=== PATIENT | female | born 1975 | race Two or more races ===

== ENCOUNTER 2018-08-21 09:46 | Emergency (ER) | payer SELFPAY ==
[2018-08-21] MEDS ORDERED: ASPIRIN 81 MG CHEWABLE TAB PO ONE (10:16)
--- NOTE | 2018-08-21 12:46 | EDPHY ---
H & P Time Seen by Provider: 08/21/18 09:50 HPI/ROS: This patient reports left lower extremity complaints. She explains that she stayed up late working on a project the in a position in which her ankles were crossed underneath her body sitting upright with her knees hyperflexed and she then slumped forward and fell asleep. She awakened at around 4 in the morning and stood up but felt a pop in her foot when she did so. She had pain associated with this and since then reports pallor, paresthesias and cold sensation to her left lower extremity. She states the pain is moderate to severe in her foot and prevents placing weight on her foot to ambulate. 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 She reports left upper extremity has injection site with no local complaints at that site. She denies any IVDA in the last 72 hrs per her report. ROS: Constitutional: No fevers Neuro: She reports paresthesias to the affected foot. No headache. Pulmonary: No shortness of breath or cough Cardiovascular: No chest pain palpitations or lightheadedness. She reports leg pain that extends from the foot up the calf into the posterior thigh the left leg. GI: No complaints Integumentary: No complaints except pallor to the affected lower extremity. 7 point review of symptoms is performed and otherwise negative with exception of pertinent positives and negatives listed in HPI and ROS Smoking Status: Light smoker Physical Exam: Physical Exam Vital signs are normal. General: No acute distress HEENT: Atraumatic. Eyes: Pupils equal and react to light. Extraocular motions are intact. Lungs: No respiratory distress. Cardiac: Regular rate and rhythm with no murmur gallop or rub. No splinter hemorrhages on fingernails. Patient has a pale left leg with a weak but palpable posterior tibialis pulse in the ankle on the left compared to the right and normal dorsalis pedis. She has delayed capillary refill in this lower extremity with mild posterior calf tenderness in addition. Homans is negative. Skin: Pallor to the left lower extremity initially. Skin is cool to the touch in the left leg compared to the right. Musculoskeletal: Patient has tenderness to the left midfoot without tenderness the 5th metatarsal or ankle. Neuro: Alert and oriented x3 with no sensorimotor deficits. Initial differential diagnosis: DVT, arterial thrombosis, foot sprain, foot fracture, Raynaud's phenomenon Constitutional: Initial Vital Signs Temperature (C) 36.9 C 08/21/18 09:49 Heart Rate 107 H 08/21/18 09:49 Respiratory Rate 16 08/21/18 09:49 Blood Pressure 165/110 H 08/21/18 09:49 O2 Sat (%) 96 08/21/18 09:49 O2 Delivery Mode Room Air Allergies/Adverse Reactions: morphine Allergy (Verified 08/21/18 09:48) Home Medications: Medication Instructions Recorded [facility] 08/21/18 MDM/Departure - MDM Diagnostics: POC CBC is normal. POC basic metabolic panel is normal. Imaging Results: Lower extremity Doppler studies negative for DVT per Dr. Blankenship Three-view foot x-rays: Negative for fracture by my interpretation. Imaging: Discussed imaging studies w/ call center team leader Radiologist (dopplar study), I viewed and interpreted images myself (foot x-rays) Medications Given: Discontinued Medications Aspirin (Aspirin) 324 mg PO EDNOW ONE Stop: 08/21/18 10:17 Last Admin: 08/21/18 10:27 Dose: 324 mg ED Course/Re-evaluation: Ibuprofen Tylenol for pain with some relief After being under a blanket for 90 min or so her left lower extremity regained normal color, temperature to touch and posterior tibialis pulses felt strong. A an element of history that she did not initially offers that she had applied ice to her left lower extremity for an hour or more after the injury. There had been ice on the lower extremity for 0.5 hr or more prior to coming in but I suspect the patient has Raynaud's phenomenon. I counseled regarding this in some detail. We ruled out DVT. Ruled out foot fracture. I think that in falling asleep she had a brief neurapraxia for lower extremity, inverted her left foot with sprain to the foot then applied ice with prolonged pallor in cool appearance due to Raynaud's phenomenon. She will wear a postop shoe, take ibuprofen Tylenol follow up with Podiatry for any prolonged symptoms. I do not think this patient has infectious etiology given lack of fevers, splinter hemorrhages, cardiac murmur or other findings at this time. I counseled her to avoid IV drug use in the future. Splinting: Patient is placed in postop shoe by our tech according to my instructions. - Depart Disposition: Home, Routine, Self-Care Clinical Impression: Foot sprain Qualifiers: Encounter type: initial encounter Laterality: left Qualified Code(s): S93.602A - Unspecified sprain of left foot, initial encounter Raynaud phenomenon Qualifiers: Raynaud?s-associated gangrene presence: without gangrene Qualified Code(s): I73.00 - Raynaud's syndrome without gangrene Condition: Good Instructions: Crutch Instructions (ED), Raynaud Disease (ED), Foot Sprain (ED) Additional Instructions: Diagnoses: 1. Foot sprain 2. Raynaud's phenomena Plan: Ibuprofen Tylenol for pain Foot splint whenever your up and about Cane or crutches until it is no longer painful to bear weight. Follow-up with football scout listed below if he is not improving significantly over the next week with treatment plan. Referrals: NONE *PRIMARY CARE P,. [Primary Care Provider] - As per Instructions Tommie Gudino MD [Doctor of Podiatric Medicine] - As per Instructions
[2018-08-21 13:24] VITALS: BP 127/98
== END 2018-08-21 13:39 | disposition home or self-care (01) ==
LOC: CED 09:46
DX: S93.602A Unspecified sprain of left foot, initial encounter (principal); X50.9XXA Other and unspecified overexertion or strenuous movements or postures, initial encounter; Y92.9 Unspecified place or not applicable; Y99.9 Unspecified external cause status; Y93.9 Activity, unspecified
CPT/HCPCS: 73630-PO; 80048-ER; 93971-PO; L4386-ER

== ENCOUNTER 2018-09-24 17:35 | Observation (INO) | payer BC ==
--- NOTE | 2018-09-24 18:16 | EDPHY ---
H & P Stated Complaint: Chest Pain since last night Source: Patient - Personal History Current Tetanus Diphtheria and Acellular Pertussis (TDAP): No Tetanus Vaccine Date: 2007 - Medical/Surgical History Hx Asthma: No Hx Chronic Respiratory Disease: No Hx Diabetes: No Hx Cardiac Disease: No Hx Renal Disease: No Hx Cirrhosis: No Hx Alcoholism: No Hx HIV/AIDS: No Hx Splenectomy or Spleen Trauma: No Other PMH: Med hx-seizures,htn. Surg-tubal ligation - Social History Smoking Status: Light smoker Time Seen by Provider: 09/24/18 18:16 HPI/ROS: HPI CHIEF COMPLAINT: Upper Burning Abdominal Pain. HISTORY OF PRESENT ILLNESS: This patient is a 42-year-old female, she is otherwise healthy, however has a history of GERD, she presents to the emergency room with burning discomfort in her epigastric/chest region. She believes that she is having very bad reflux. She reports that she vomited 2 times yesterday, and developed very bad burning pain in her chest. She denies any upper chest pain, denies shortness of breath, denies cough, denies hemoptysis. Denies vomiting blood. She states that she had stomach acid and that it was yellow. She denies any black tarry stools or diarrhea. States she had a normal bowel movement earlier today. She is unsure why she vomited twice yesterday. Due to the ongoing discomfort she decided come the emergency room. She also additionally reports she did IV methamphetamine yesterday. Patient denies any shortness of breath or pleuritic pain or Hemoptysis. Past Medical History: Denies significant medical history except for GERD Past Surgical History: Tubal ligation Social History: IV methamphetamine, daily tobacco use, denies alcohol or other drugs. Family History: Noncontributory ROS REVIEW OF SYSTEMS: 10 Systems were reviewed and negative with the exception of the elements mentioned in the history of present illness. Exam Constitutional Non toxic, VSS, triage nursing summary reviewed, vital signs reviewed, awake/alert. Eyes normal conjunctivae and sclera, EOMI, PERRLA. HENT normal inspection, atraumatic, moist mucus membranes, no epistaxis, neck supple/ no meningismus, no raccoon eyes. Respiratory clear to auscultation bilaterally, normal breath sounds, no respiratory distress, no wheezing. Cardiovascular rate normal, regular rhythm, no murmur, no edema, distal pulses normal. Gastrointestinal mild tender palpation epigastric region, no rebound, no guarding, normal bowel sounds, no distension, no pulsatile mass. Genitourinary no CVA tenderness. Musculoskeletal no midline vertebral tenderness, full range of motion, no calf swelling, no tenderness of extremities, no meningismus, good pulses, neurovascularly intact. Skin pink, warm, & dry, no rash, skin atraumatic. Neurologic awake, alert and oriented x 3, AAOx3, moves all 4 extremities equally, motor intact, sensory intact, CN II-XII intact, normal cerebellar, normal vision, normal speech. Psychiatric normal mood/affect. Heme/Lymph/Immune no lymphadenopathy. Differential Diagnosis: Differential diagnosis includes but is not limited to and in no particular order: Bowel obstruction, appendicitis, gallbladder disease, diverticulitis, colitis, enteritis, perforated viscus, gastritis, GERD , esophagitis, urinary tract infection, pyelonephritis, kidney stones Differential diagnosis includes but is not limited to: ACS, atypical chest pain , pneumothorax, pneumonia, pulmonary embolism, aortic dissection, congestive heart failure, tumor, musculoskeletal pain, esophageal pain, GERD, peptic ulcer disease, pancreatitis Medical Decision Making: Plan for this patient appears to be burning sensation or epigastric region return upped her throat. With bile and stomach acid. Most likely consistent with GERD possible gastritis, esophageal spasm. Will try GI cocktail. And re-evaluate. Obtain chest x-ray EKG, basic labs, troponin. Re-evaluation: EKG interpretation by me on record in [employer] system. Impression time of EK, sinus rhythm rate of 84, I do not appreciate any signs of acute ischemia no ST elevation. 1857: Patient much improved after GI cocktail. She states her pain is completely gone with this. Patient's chemistry potassium slightly elevated. Will repeat. Initial: Troponin 0.00 EKG nonischemic Dimer negative Plan for repeat ekg, repeat trop. EKG interpretation by me on record in [employer] system. Impression time of EKG this is a repeat EKG time 9:16 p.m., sinus rhythm rate of 75 with no signs of acute ischemia. Unremarkable normal EKG. 2119: Patient resting, had a recurrence of epigastric burning pain, improved yet again with another gi cocktail. 2131: When I re-evaluate the patient this time she does states she feels much better after 2nd GI cocktail. She also received IV Pepcid. She had a repeat EKG that shows no acute ischemia. She denies any chest pain at this time. On re-examination her abdomen this time she has some tenderness to palpation mid abdomen periumbilical region and epigastric region. No right upper quadrant abdominal pain. Given her ongoing abdominal pain will proceed with CT scan abdomen pelvis with IV contrast. Help delineate her abdominal pain. Repeat troponin 0.00 at time 9:33 p.m. Urine negative. Given the patient had ongoing abdominal pain mainly mid abdomen epigastric she had a CT scan abdomen pelvis with IV contrast shows no acute inflammatory process. Pancreas is not inflamed, gallbladder normal, food in the stomach. No hiatal hernia. Normal appendix. This was called to me by Dr. Iqbal. 2223: Patient re-evaluated: Still complains of abdominal pain. She denies any chest pain shortness of breath at this time. Continues to complain of "bad abdominal pain". She does not want to go home. Given her ongoing pain plan for admission overnight to the hospital for observation. 2232: Patient accepted by Dr. Early. Agrees to admit. 2nd liter of fluid ordered. Iv protonix ordered. [facility] pain. Patient agrees for admission Patient agrees for transfer. (Ruiz Miller) Constitutional: Initial Vital Signs Temperature (C) 37.1 C 09/24/18 17:41 Heart Rate 98 09/24/18 17:41 Respiratory Rate 16 09/24/18 17:41 Blood Pressure 164/114 H 09/24/18 17:41 O2 Sat (%) 100 09/24/18 17:41 O2 Delivery Mode Room Air Allergies/Adverse Reactions: morphine Allergy (Verified 09/25/18 08:46) Other-Enter Comments Home Medications: Medication Instructions Recorded Ranitidine HCl [Zantac] 150 mg PO DAILY #30 tablet 09/24/18 Sucralfate [Carafate 1 GM (*)] 1 gm PO ACHS #30 tab 09/24/18 Acetaminophen [Tylenol 325mg (*)] 650 mg PO Q4HRS PRN tab 09/25/18 Nicotine [Nicoderm Cq 14 mg (*)] 14 mg TD DAILY patch 09/25/18 Pantoprazole Sodium [Protonix 40mg 40 mg PO DAILY #30 tab 09/25/18 (*)] Medical Decision Making Other Provider: 10:50 D/W Dr. James as pt remains here in dept after his workup expecting ambulance for transfer after extensive workup her in the ER. Chart reviewed. EKG's reviewed. 11:00 Called to see pt as she is having the pain in her chest again. She reports once every 6 weeks heartburn for which she takes milk, but never has had a work up nor seen a PCP for that. However, this week she has had 2 days since distantly [id number] 3 she has had pains in the chest. That was her usual typical "heartburn". However today was been tired different. It was a sense of severe burning discomfort in the mid central chest. Essentially the same site however just muchh more intense. There has been no in radiation to the abdomen or jaw or arms. The pain she is now having is the same type of pain that she has had on the 2 separate occasions this evening where as Dr. Miller care with GI cocktail. On exam: General: Hemodynamically stable. Afebrile. Vital signs are stable. Good color. no diaphoresis. Lungs: Clear to auscultation. Good air entry all lung quezada. Cardiovascular: Regular rate rhythm. No murmur. No rub. Chest wall: Nontender. Extremities: No edema. No swelling. No calf tenderness Prior to going to the room I did confirm with the staff as to whether we had PO Nifedipine or p.o. Diltiazem. Unfortunately did not have either. At that point the nurse entered as we had been discussing the case previously as I entered the room with a GI cocktail as well as some ketamine. The patient became reluctant to take the ketamine. Evidently she had a bad experience of fentanyl in the past and really did want to try the ketamine. Attempted to explain to her that it was the dissociative agent would make her care far less about the pain and is further a not a narcotic, however, she politely refused. At that point the ambulance arrived to transfer to [facility]. (Kyler Maxwell) - Data Points Medications Given: Discontinued Medications Acetaminophen (Tylenol) 650 mg PO Q4HRS PRN PRN Reason: Pain, Mild/Fever, Can Take PO Stop: 03/24/19 00:11 Last Admin: 09/25/18 05:11 Dose: 650 mg Al Hydroxide/Mg Hydroxide (Maalox Susp) 30 ml PO ONCE ONE Stop: 09/24/18 18:23 Last Admin: 09/24/18 18:28 Dose: 30 ml Al Hydroxide/Mg Hydroxide (Maalox Susp) 30 ml PO ONCE ONE Stop: 09/24/18 20:53 Last Admin: 09/24/18 21:01 Dose: 30 ml Al Hydroxide/Mg Hydroxide (Maalox Susp) 30 ml PO Q4HRS PRN PRN Reason: Indigestion Stop: 03/23/19 22:57 Last Admin: 09/24/18 23:12 Dose: 30 ml Al Hydroxide/Mg Hydroxide (Maalox Susp) 30 ml PO ONCE ONE Stop: 09/25/18 00:21 Last Admin: 09/25/18 01:17 Dose: 30 ml Al Hydroxide/Mg Hydroxide (Maalox Susp) 30 ml PO Q4HRS PRN PRN Reason: Indigestion Stop: 03/24/19 05:02 Last Admin: 09/25/18 10:33 Dose: 30 ml Famotidine (Pepcid) 20 mg IVP EDNOW ONE Stop: 09/24/18 20:46 Last Admin: 09/24/18 20:49 Dose: 20 mg Hyoscyamine Sulfate (Levsin, Hyomax-Sl) 0.25 mg PO ONCE ONE Stop: 09/24/18 18:23 Last Admin: 09/24/18 18:27 Dose: 0.25 mg Hyoscyamine Sulfate (Levsin, Hyomax-Sl) 0.25 mg PO ONCE ONE Stop: 09/24/18 20:53 Last Admin: 09/24/18 21:01 Dose: 0.25 mg Hyoscyamine Sulfate (Levsin, Hyomax-Sl) 0.25 mg PO ONCE ONE Stop: 09/25/18 00:21 Last Admin: 09/25/18 00:32 Dose: 0.25 mg Sodium Chloride (Ns) 1,000 mls @ 0 mls/hr IV ONCE ONE PRN Reason: Wide Open Stop: 09/24/18 18:27 Last Admin: 09/24/18 18:32 Dose: 1,000 mls Sodium Chloride (Ns) 1,000 mls @ 0 mls/hr IV ONCE ONE PRN Reason: Wide Open Stop: 09/24/18 22:33 Last Admin: 09/24/18 22:38 Dose: 1,000 mls Ketamine HCl (Ketamine) 9.3 mg 0.2 mg/kg (9.3 mg) IVP EDNOW ONE Stop: 09/24/18 23:04 Last Admin: 09/24/18 23:13 Dose: Not Given Lidocaine (Lidocaine 2% Viscous) 15 ml PO ONCE ONE Stop: 09/24/18 18:23 Last Admin: 09/24/18 18:28 Dose: 15 ml Lidocaine (Lidocaine 2% Viscous) 15 ml PO ONCE ONE Stop: 09/24/18 20:53 Last Admin: 09/24/18 21:01 Dose: 15 ml Lidocaine (Lidocaine 2% Viscous) 15 ml PO ONCE ONE Stop: 09/25/18 00:21 Last Admin: 09/25/18 01:17 Dose: 15 ml Nicotine (Nicoderm Cq) 14 mg TD DAILY JULIA Stop: 03/24/19 00:14 Last Admin: 09/25/18 10:34 Dose: 14 mg Pantoprazole Sodium (Protonix) 40 mg IVP EDNOW ONE Stop: 09/24/18 22:27 Last Admin: 09/24/18 22:38 Dose: 40 mg Pantoprazole Sodium (Protonix) 40 mg PO DAILY JULIA Stop: 03/24/19 08:59 Last Admin: 09/25/18 08:32 Dose: 40 mg Sucralfate (Carafate Suspension) 1 gm PO ACHS JULIA Stop: 03/24/19 07:29 Last Admin: 09/25/18 11:43 Dose: 1 gm Point of Care Test Results: CBC CBC Collection Date 09/24/18 CBC Collection Time 17:55 WBC 8.20 RBC 4.71 HGB 13.4 HCT 41.4 PLT 334 Neut # 5.3 Neut 64.6 LYMPH # 2.40 LYMPH 29.3 MCV 87.9 Chemistry 09/24/18 09/24/18 09/24/18 21:17 18:59 18:02 POC Sodium 142 mEq/L mEq/L 147 mEq/L H mEq/L (135-145) (135-145) POC Potassium 4.6 mEq/L mEq/L 5.1 mEq/L H mEq/L (3.3-5.0) (3.3-5.0) POC Chloride 106 mEq/L mEq/L 106.0 mEq/L mEq/L (97-110) (97-110) POC Total CO2 28 mEq/L mEq/L 30 mEq/L mEq/L (22-31) (22-31) POC BUN 16 mg/dL mg/dL 15 mg/dL mg/dL (7-23) (7-23) POC Creatinine 0.7 mg/dL mg/dL 0.9 mg/dL mg/dL (0.6-1.0) (0.6-1.0) POC Glucose 84 mg/dL mg/dL 91 mg/dL mg/dL (70-100) (70-100) POC Calcium 10.0 mg/dL mg/dL (8.5-10.4) POC Total Bilirubin 0.5 mg/dL mg/dL (0.1-1.4) POC AST 18 IU/L IU/L (14-46) POC ALT 9 IU/L IU/L (9-52) POC Alk Phosphatase 61 IU/L IU/L (38-126) POC Troponin I 0.00 ng/mL ng/mL (0.00-0.08) POC Total Protein 8.1 g/dL g/dL (6.3-8.2) POC Albumin 4.0 g/dL g/dL (3.5-5.0) 09/24/18 17:59 POC Sodium POC Potassium POC Chloride POC Total CO2 POC BUN POC Creatinine POC Glucose POC Calcium POC Total Bilirubin POC AST POC ALT POC Alk Phosphatase POC Troponin I 0.00 ng/mL ng/mL (0.00-0.08) POC Total Protein POC Albumin ISTAT H&H 09/24/18 18:59 POC Hgb 14.3 gm/dL gm/dL (12.6-16.3) POC Hct 42 % % (38-47) D-Dimer D-Dimer Collection Date 09/24/18 D-Dimer Collection Time 17:55 D-Dimer (ng/ml) LESS THAN 100 Urine Collection Date 09/24/18 Collection Time 21:40 HCG Results Negative Departure - Departure Disposition: [facility] Inpatient Acute Clinical Impression: Gastritis Qualifiers: Gastritis type: unspecified gastritis Chronicity: acute Gastritis bleeding: without bleeding Qualified Code(s): K29.00 - Acute gastritis without bleeding Abdominal pain Qualifiers: Abdominal location: epigastric Qualified Code(s): R10.13 - Epigastric pain Condition: Fair
[2018-09-24] MEDS ORDERED: LIDOCAINE 2% VISCOUS 15 ML UDCUP PO ONE ×2 (18:22→20:52)
[2018-09-24] MEDS ORDERED: MAG HYDROX/AL HYDROX/SIMETH 30 ML UDCUP PO ONE ×2 (18:22→20:52)
[2018-09-24] MEDS ORDERED: HYOSCYAMINE SULFATE 0.125 MG TAB PO ONE ×2 (18:22→20:52)
[2018-09-24] MEDS ORDERED: NS 1,000 ML IV ONE ×2 (18:26→22:32)
[2018-09-24] MEDS ORDERED: FAMOTIDINE 20 MG/2 ML SDV IVP ONE (20:45)
[2018-09-24] MEDS ORDERED: IOPAMIDOL (ISOVUE-300) 100 ML BTL ONE (21:51)
[2018-09-24] MEDS ORDERED: PANTOPRAZOLE SODIUM 40 MG VIAL IVP ONE (22:26)
[2018-09-24] MEDS ORDERED: MAG HYDROX/AL HYDROX/SIMETH 30 ML UDCUP PO PRN (22:58)
[2018-09-24] MEDS ORDERED: niCARdipine/NACL/200 ML BAG IV ONE (23:00)
[2018-09-24] MEDS ORDERED: MAG HYDROX/AL HYDROX/SIMETH 30 ML UDCUP ONE (23:01)
[2018-09-24] MEDS ORDERED: KETAMINE 500 MG/10 ML VIAL IVP ONE (23:03)
[2018-09-25] MEDS ORDERED: ACETAMINOPHEN 325 MG TAB PO PRN (00:12)
[2018-09-25] MEDS ORDERED: ONDANSETRON DISINTEGRATING 4 MG TAB PO PRN (00:12)
[2018-09-25] MEDS ORDERED: ONDANSETRON 4 MG/2 ML VIAL IVP PRN (00:12)
[2018-09-25] MEDS ORDERED: oxyCODONE IR 5 MG TAB PO PRN (00:12)
[2018-09-25] MEDS ORDERED: HYOSCYAMINE SULFATE 0.125 MG TAB PO ONE (00:20)
[2018-09-25] MEDS ORDERED: LIDOCAINE 2% VISCOUS 15 ML UDCUP PO ONE (00:20)
[2018-09-25] MEDS ORDERED: MAG HYDROX/AL HYDROX/SIMETH 30 ML UDCUP PO ONE (00:20)
--- NOTE | 2018-09-25 00:34 | PDGENHP ---
History and Physical - Chief Complaint Abdominal pain - History of Present Illness 42 yo F w/ hx of TBI, related seizure d/o, and hx of IV methamphetamine use presents with abdominal pain. The patient tells me she has had increased reflux symptoms for 3 days. Today she developed severe epi-gastric pain w/ radiation upwards. She denies BRBPR or melena. She takes ibuprofen 3x weekly for headaches , smokes 3-4 cigarettes daily, and drinks coffee daily. She uses methamphetamine IV about once per week, last yesterday. Her work-up in the ED was mostly unremarkable with unremarkable CT and normal lactate. Her symptoms were improved by GI cocktail, PPI, and H2B. She is being admitted for observation. Case discussed with ED physician Dr. James; records reviewed and summarized above. History Information - Allergies/Home Medication List Allergies/Adverse Reactions: morphine Allergy (Verified 09/24/18 17:49) Home Medications: Keppra 08/21/18 [Last Taken Unknown] I have personally reviewed and updated: family history, medical history - Past Medical History seizures Additional medical history: TBI - Surgical History Additional surgical history: BTL - Family History Positive for: cancer, diabetes type II, hypertension - Social History Smoking Status: Light smoker Drug Use: Other (Meth IV) Review of Systems Review of Systems: ROS: 10pt was reviewed & negative except for what was stated in HPI & below Physical Exam Physical Exam: Temp Pulse Resp BP Pulse Ox 37.1 C 95 16 138/100 H 97 09/24/18 17:41 09/25/18 00:15 09/25/18 00:15 09/25/18 00:15 09/25/18 00:15 Constitutional: appears nourished, uncomfortable Eyes: PERRL, EOMI Ears, Nose, Mouth, Throat: moist mucous membranes, no oral mucosal ulcers Cardiovascular: regular rate and rhythym, no murmur, rub, or gallop Respiratory: no respiratory distress, clear to auscultation Gastrointestinal: normoactive bowel sounds, tenderness (Epi-gastric) Skin: warm, normal color Musculoskeletal: full muscle strength, no muscle tenderness Neurologic: AAOx3, CN II-XII Intact Psychiatric: interacting appropriately, not anxious Lab Data & Imaging Review POC Hgb 14.3 gm/dL (12.6-16.3) 09/24/18 18:59 POC Hct 42 % (38-47) 09/24/18 18:59 POC Sodium 142 mEq/L (135-145) 09/24/18 18:59 POC Potassium 4.6 mEq/L (3.3-5.0) 09/24/18 18:59 POC Chloride 106 mEq/L (97-110) 09/24/18 18:59 POC Total CO2 28 mEq/L (22-31) 09/24/18 18:59 POC BUN 16 mg/dL (7-23) 09/24/18 18:59 POC Creatinine 0.7 mg/dL (0.6-1.0) 09/24/18 18:59 POC Glucose 84 mg/dL (70-100) 09/24/18 18:59 POC Lactic Acid Jake 0.8 mmol/L (0.7-2.1) 09/24/18 22:44 POC Calcium 10.0 mg/dL (8.5-10.4) 09/24/18 18:02 POC Total Bilirubin 0.5 mg/dL (0.1-1.4) 09/24/18 18:02 POC AST 18 IU/L (14-46) 09/24/18 18:02 POC ALT 9 IU/L (9-52) 09/24/18 18:02 POC Alk Phosphatase 61 IU/L (38-126) 09/24/18 18:02 POC Troponin I 0.00 ng/mL (0.00-0.08) 09/24/18 21:17 POC Total Protein 8.1 g/dL (6.3-8.2) 09/24/18 18:02 POC Albumin 4.0 g/dL (3.5-5.0) 09/24/18 18:02 Imaging Review: Imaging Impressions Chest X-Ray 09/24/18 18:11 Impression: Scoliosis, positional versus evidence for muscle spasm. Otherwise negative. Abdomen CT 09/24/18 21:31 Impression: 1. Constipation without bowel obstruction. 2. No CT evidence of appendicitis, abscess or bowel obstruction. 3. Small fat-containing periumbilical abdominal wall hernia defect. Findings and recommendations discussed with Emergency Department physician, Ruiz Miller MD at 22:22 hour, 09/24/2018. Final report concurs with initial preliminary interpretation. Visualized and Interpreted EKG results: Yes EKG Interpretation: Positive for: normal sinsus rhythm Assessment & Plan Assessment: 42 yo F w/ hx of TBI, related seizure d/o, and hx of IV methamphetamine use presents with suspected gastritis/PUD. Plan: 1. Epigastric pain - History and symptoms c/w gastritis/PUD. Her work-up including CT and lactate is otherwise reassuring. Her symptoms have been improved by GI cocktail and PPI, H2B. - Admit for observation - Start daily PPI - Counseled on cessation of NSAIDs, tobacco, and amphetamine use - Pain control PRN 2. Methamphetamine use - Patient uses IV methamphetamine at least weekly. She wishes to stop. - Counseled cessation - Will check HIV and Hep C - Case management consult placed 3. Hx TBI - With related seizure d/o and frequent HAs. She was prescribed Keppra at some point but has not been taking it. She reports her last seizure was about 4 months ago. - Recommended Tylenol PRN instead of NSAIDs Diet - Regular Code - Full Ppx - SCDs Dispo - Admit under observation status
[2018-09-25] MEDS: NICOTINE 14 MG/24 HR PATCH TD SCH ×2 (00:49→10:34)
[2018-09-25] MEDS: MAG HYDROX/AL HYDROX/SIMETH 30 ML UDCUP PO PRN ×2 (05:11→10:33)
[2018-09-25 05:43] LABS: PLATELET COUNT 286 10^3/uL (150-400)
[2018-09-25] MEDS: SUCRALFATE 1 GM/10 ML UDCUP PO SCH ×2 (08:31→11:43)
[2018-09-25] MEDS ORDERED: PANTOPRAZOLE SODIUM 40 MG TAB PO SCH (09:00)
[2018-09-25 09:33] LABS: HEPATITIS C ANTIBODY TOTAL REACTIVE (NEGATIVE); HIV TYPE 1 AND 2 NEGATIVE (NEGATIVE)
--- NOTE | 2018-09-25 09:54 | HOSPPROG ---
Hospitalist Progress Note Assessment/Plan: 42 yo F w/ hx of TBI, related seizure d/o, and hx of IV methamphetamine use presents with suspected gastritis/PUD. First encounter, chart reviewed. *epigastric pain -likely r/t gastritis, cont PPI and H2B1 -amphetamines, caffeine and ibuprofen contributing to this -reviewed CT scan, nothing acute noted -she is eating and drinking this morning * Methamphetamine use - Patient uses IV methamphetamine up to 3 x weekly - Counseled cessation - HIV negative *Hepatitis C reactive -will check a HCV RNA *hx of TBI w associated seizures -was prescribed Keppra but has not been taking it -last seizure was approximately 4 mo ago *plan: dc today, will ask CM to give her resources to help w her meth addiction and she needs a PCP to have f/u with Hepatitis C pending lab Subjective: Carey said abdominal pain is much improved. Objective: Vital Signs Temp Pulse Resp BP Pulse Ox 37.1 C 89 16 123/80 H 93 09/25/18 07:41 09/25/18 07:41 09/25/18 07:41 09/25/18 07:41 09/25/18 07:41 Laboratory Results 09/25/18 05:01 09/25/18 05:01 09/24/18 09/25/18 09/26/18 05:59 05:59 05:59 Intake Total 2250 Balance 2250 - Physical Exam Constitutional: other (slender) Eyes: PERRL Ears, Nose, Mouth, Throat: hearing normal Respiratory: no respiratory distress Gastrointestinal: normoactive bowel sounds Skin: warm Musculoskeletal: full muscle strength Neurologic: AAOx3 Psychiatric: interacting appropriately ICD10 Worksheet Patient Problems: Problems Problem Status Onset Abdominal pain Acute Gastritis Acute Foot sprain Acute Raynaud phenomenon Acute
--- NOTE | 2018-09-25 11:24 | ASMTCAGE ---
CAGE Do you feel you ought to Answers: Yes cut down on your drinking or drug use? Do people annoy you by Answers: Yes criticizing your drinking or drug use? Do you feel guilty about Answers: Yes your drinking or drug use? Do you drink or use drugs Answers: No first thing in the morning ([employer])? Date Signed: 09/25/2018 11:23 AM Electronically Signed By:REYNOLD Church
--- NOTE | 2018-09-25 11:34 | ASMTCMCOM ---
CM Note CM Note Notes: Pts case discussed w/ Hoa Feng NP. Pt is a 42 y/o female admitted for abdominal pain. Pt has a hx of iv meth use. Pt reports that she wants to stop using and this hospialization was a 'wake up call'. Pt has a that does not use. CM provided resources for substance use and made her a PCP appointment. CM provided pt smoking cessiation info. CAGE completed. Pt will d/c home without any needs. CM available for changes. [facility] [address] [place] [address] Dr. Basil Gaines 09/29/18 at 8:00AM Please bring photo ID, insurance card, co pay, list of all meds and copy of d/c paperwork Date Signed: 09/25/2018 11:34 AM Electronically Signed By:REYNOLD Church
[2018-09-25 11:52] VITALS: BP 106/64
--- NOTE | 2018-09-25 11:52 | GDS ---
[f rep st] DISCHARGE SUMMARY DISCHARGE DIAGNOSES: 1. Epigastric pain. 2. Methamphetamine use. 3. Reactive hepatitis C. 4. History of traumatic brain injury with associated seizures. Briefly, the patient is a very sweet 42-year-old female with a history of a traumatic brain injury, s eizure disorder, and IV methamphetamine use. She was admitted with abdominal pain. She had a CT sca n performed which showed nothing acute. Her pain much improved with the use of a PPI and an H2 block er. She will be discharged home with close followup care. HOSPITAL COURSE: 1. Epigastric pain, resolved. 2. Methamphetamine use. The patient realizes this is impacting her life and her health. Case Manag jack has given her a physician to follow up with and resources. Fortunately, her HIV is negative. 3. Hepatitis C that is reactive. HCV RNA is pending. I explained this to her. She is very concern ed about this and will follow up. 4. History of traumatic brain injury with associated seizure. She has been prescribed Keppra, has n ot been taking it, says she has not had a seizure in 4 months. DISCHARGE CONDITION: Stable. Blood pressure is 123/80, O2 sats on room air 93%, respiratory rate is 16, pulse is 89, temperature 37.1 Celsius. MEDICATIONS AT DISCHARGE: Please see the EMR. DISCHARGE INSTRUCTIONS: 1. She has an appointment scheduled with Dr. Gaines on September 29 at 8 a.m. Close followup with him . 2. Take Pepcid or Zantac at night along with Protonix daily. 3. To have her primary care doctor follow up with the HCV RNA. 4. Stop methamphetamine. It is impacting her health and her life. 5. Stop ibuprofen. 6. To cut back on her cigarettes. Copy requested to: Dr. Gaines /[id number]/MODL
--- NOTE | 2018-09-25 13:35 | CPEKG ---
Test Reason : OPEN Blood Pressure : / mmHG Vent. Rate : 075 BPM Atrial Rate : 075 BPM P-R Int : 120 ms QRS Dur : 086 ms QT Int : 375 ms P-R-T Axes : 043 074 047 degrees QTc Int : 419 ms Sinus rhythm Confirmed by Randee Huynh ([id number]) on 09/25/2018 1:34:51 PM Referred By: Ruiz Miller Confirmed By:Randee Huynh
--- NOTE | 2018-09-25 13:36 | CPEKG ---
Test Reason : OPEN Blood Pressure : / mmHG Vent. Rate : 084 BPM Atrial Rate : 085 BPM P-R Int : 107 ms QRS Dur : 085 ms QT Int : 380 ms P-R-T Axes : 046 083 052 degrees QTc Int : 450 ms Sinus rhythm Short [place] interval Confirmed by Randee Huynh ([id number]) on 09/25/2018 1:36:23 PM Referred By: Ruiz Miller Confirmed By:Randee Huynh
== END 2018-09-25 13:05 | disposition home health service (06) ==
LOC: CED 17:35 → CEDHOLD 22:31 → F3E 09-25 00:09
PROVIDERS: ADMIT Student in an Organized Health Care Education/Training Program; ATTEND Internal Medicine
DX: R10.13 Epigastric pain (principal); F15.10 Other stimulant abuse, uncomplicated; K75.2 Nonspecific reactive hepatitis; G40.909 Epilepsy, unspecified, not intractable, without status epilepticus; F17.210 Nicotine dependence, cigarettes, uncomplicated; I10 Essential (primary) hypertension; K21.9 Gastro-esophageal reflux disease without esophagitis; Z87.820 Personal history of traumatic brain injury
CPT/HCPCS: 71045; 74177; 93005; 96361; 96374; 96375; 99285; G0378; 80053-ER; 81025-ER; 82435-PO; 82565-PO; 82947-PO; 83605-ER; 84132-PO; 84295-PO; 84484-ER; 84520-PO; 85014-ER; 85025-QW-ER; 85379-QW-ER; G0472; Q9967